=== PATIENT | male | born 1975 | race Caucasian/White ===

== ENCOUNTER 2021-04-11 22:21 | Emergency (ER) | payer BC ==
[~2021-04-11] VITALS: Ht 177.8 cm; Wt 100.1 kg
[2021-04-12 00:26] LABS: BASO # 0.1 10^3/uL (0.0-0.2); EOS # 0.1 10^3/uL (0.0-0.5); EOS % 0.7 % (0.0-3.0); HEMATOCRIT 47.3 % (42.0-52.0); HEMOGLOBIN 15.6 g/dl (13.5-17.5); LYMPH # 1.2 10^3/uL (1.5-5.0); MEAN CORPUSCULAR HEMOGLOBIN 29.7 pg (27.0-33.0); MEAN CORPUSCULAR VOLUME 90.1 fl (80.0-96.0); MONO # 0.9 10^3/uL (0.0-0.8); MONO % 11.5 % (2.0-8.0); NEUTROPHILS # 5.7 10^3/uL (1.5-8.5); NEUTROPHILS % 71.4 % (36.0-66.0); PLATELET COUNT, AUTOMATED 247 10^3/uL (150-450); RED BLOOD COUNT 5.25 10^6/uL (4.30-6.10)
[2021-04-12 00:43] LABS: ALBUMIN 4.6 GM/DL (3.2-5.2); ALT/SGPT 60 U/L (12-78); BILIRUBIN,DIRECT 0.2 MG/DL (0.0-0.2); BILIRUBIN,TOTAL 0.6 MG/DL (0.2-1.0); BLOOD UREA NITROGEN 11 MG/DL (7-18); CALCIUM LEVEL 9.4 MG/DL (8.5-10.1); CARBON DIOXIDE LEVEL 29 MEQ/L (21-32); CHLORIDE LEVEL 102 MEQ/L (98-107); CK-MB VALUE MASS 4.1 NG/ML (<3.6); CPK CREATINE PHOSPHOKINASE 484 U/L (39-308); CREATININE FOR GFR 0.81 MG/DL (0.70-1.30); GLOMERULAR FILTRATION RATE > 60.0 (>60); GLUCOSE, FASTING 91 MG/DL (70-100); LIPASE 95 U/L (73-393); MB/CK RELATIVE INDEX 0.85 (< OR =4); POTASSIUM SERUM 3.5 MEQ/L (3.5-5.1); SODIUM LEVEL 139 MEQ/L (136-145); TROPONIN I < 0.02 NG/ML (< 0.10)
--- NOTE | 2021-04-12 01:03 | REPVR ---
PROCEDURE INFORMATION: Exam: XR Complete Acute Abdomen Series Including Chest Exam date and time: 04/11/2021 11:57 PM Age: 45 years old Clinical indication: Abdominal pain; Acute; Additional info: Abd pain TECHNIQUE: Imaging protocol: XR complete acute abdomen series, including 2 or more views of the abdomen and a single view chest. COMPARISON: No relevant prior studies available. FINDINGS: Lungs: Clear. No consolidation. Pleural spaces: Normal. No pleural effusions. No pneumothorax. Heart/Mediastinum: Normal. No cardiomegaly. Gastrointestinal tract: Normal. No bowel dilation. Intraperitoneal space: No organomegaly, mass effect, or free air. Bones/joints: Normal. No acute fracture. Soft tissues: Normal. IMPRESSION: No acute findings. Electronically signed by: Orlando Ann On 04/12/2021 01:02:56 AM
[2021-04-12] MEDS ORDERED: ANUSOL HC 25MG SUPP PR STA (01:23)
[2021-04-12] MEDS ORDERED: ANUSOL HC CREAM 30GM TOP STA (01:23)
[2021-04-12] MEDS ORDERED: ANUSHCSU PR (01:36)
[2021-04-12] MEDS ORDERED: ANUS2.5C2 TOP (01:36)
[2021-04-12 02:06] VITALS: BP 145/87
== END 2021-04-12 02:08 | disposition home or self-care (01) ==
LOC: M ED 22:21
DX: K64.8 Other hemorrhoids (principal); R74.8 Abnormal levels of other serum enzymes; I10 Essential (primary) hypertension; K21.9 Gastro-esophageal reflux disease without esophagitis

== ENCOUNTER → 2021-08-25 | Outpatient (REF) | payer BC ==
[~2021-08-25] MED LIST: ANUS2.5C2 TOP; ANUSHCSU PR
[2021-08-25 16:05] LABS: INR 1.59; PROTHROMBIN TIME 19.4 SECONDS (12.7-14.5)
== END ==
LOC: M LAB REF 14:20
PROVIDERS: ATTEND Internal Medicine
DX: Z79.01 Long term (current) use of anticoagulants (principal)

== ENCOUNTER → 2021-08-29 | Outpatient (REF) | payer BC ==
[2021-08-29 14:43] LABS: INR 1.16; PROTHROMBIN TIME 15.3 SECONDS (12.7-14.5)
== END ==
LOC: M LAB REF 13:59
PROVIDERS: ATTEND Internal Medicine
DX: I82.90 Acute embolism and thrombosis of unspecified vein (principal)

== ENCOUNTER → 2021-09-05 | Outpatient (REF) | payer BC ==
[2021-09-05 18:37] LABS: INR 1.16; PROTHROMBIN TIME 15.2 SECONDS (12.7-14.5)
== END ==
LOC: M LAB REF 17:31
PROVIDERS: ATTEND Internal Medicine
DX: I82.90 Acute embolism and thrombosis of unspecified vein (principal)

== ENCOUNTER → 2021-12-09 | Outpatient (REF) | payer OTHER ==
[2021-12-09 12:49] LABS: CORTISOL AM 15.3 UG/DL (4.3-22.4); FOLLICLE STIMULATING HORMONE 1.4 mIU/mL (1.4-18.1); PROLACTIN 22.3 NG/ML (2.1-17.7); TOTAL T3 83.2 NG/DL (60.0-181.0)
[2021-12-11 01:09] LABS: TESTOSTERONE FREE (DIRECT) 13.1 pg/mL (6.8-21.5)
== END ==
LOC: M LAB REF 11:58
PROVIDERS: ATTEND Internal Medicine
DX: S06.2X9A Diffuse traumatic brain injury with loss of consciousness of unspecified duration, initial encounter (principal); R53.83 Other fatigue; R41.3 Other amnesia

== ENCOUNTER → 2022-01-18 | Outpatient (REF) | payer OTHER ==
[2022-01-18 10:56] LABS: INR 3.62; PROTHROMBIN TIME 36.3 SECONDS (12.7-14.5)
== END ==
LOC: M LAB REF 10:03
PROVIDERS: ATTEND Internal Medicine
DX: Z79.01 Long term (current) use of anticoagulants (principal); R53.83 Other fatigue

== ENCOUNTER → 2023-01-02 | Outpatient (REF) | payer OTHER ==
[2023-01-02 14:43] LABS: PROLACTIN 9.12 NG/ML (2.1-17.7)
[2023-01-02 14:44] LABS: FOLLICLE STIMULATING HORMONE 0.7 mIU/ML (1.4-18.1); LUTEINIZING HORMONE 0.8 mIU/ML (1.5-9.3)
== END ==
LOC: M LAB REF 12:06
PROVIDERS: ATTEND Internal Medicine
DX: E22.1 Hyperprolactinemia (principal)

== ENCOUNTER → 2023-12-10 | Outpatient (REF) | payer OTHER ==
[2023-12-10 14:44] LABS: FOLLICLE STIMULATING HORMONE 1.3 mIU/ML (1.4-18.1)
[2023-12-10 14:45] LABS: LUTEINIZING HORMONE 2.5 mIU/ML (1.5-9.3)
[2023-12-10 14:46] LABS: PROLACTIN 5.15 NG/ML (2.1-17.7)
== END ==
LOC: M LAB REF 12:45
PROVIDERS: ATTEND Internal Medicine
DX: E22.1 Hyperprolactinemia (principal)